=== PATIENT | female | born 1975 | race African-American/Black ===

== ENCOUNTER 2017-11-07 18:50 | Emergency (ER) | payer SELFPAY ==
[~2017-11-07] VITALS: Ht 162.6 cm; Wt 70.0 kg
[2017-11-07] MEDS ORDERED: KETOROLAC 30MG/ML VIAL IM ONE (20:45)
[2017-11-07] MEDS ORDERED: METHOCARBAMOL 500MG TABLET PO ONE (20:45)
[2017-11-07 21:48] VITALS: BP 125/68
== END 2017-11-07 21:56 | disposition home or self-care (01) ==
LOC: ER 21:08
DX: S16.1XXA Strain of muscle, fascia and tendon at neck level, initial encounter (principal); V43.62XA Car passenger injured in collision with other type car in traffic accident, initial encounter; Y93.89 Activity, other specified; Y92.488 Other paved roadways as the place of occurrence of the external cause
CPT/HCPCS: 96372; 99283; J1885